=== PATIENT | male | born 1965 | race Caucasian/White ===

== ENCOUNTER 2020-12-02 08:33 | Outpatient (CLI) | payer OTHER | END 2020-12-02 08:42 | disposition home or self-care (01) | LOC: SONOGRAMA 08:33 → MAMO-SONO 09:15 | DX: M25.511 Pain in right shoulder (principal) ==

== ENCOUNTER 2023-06-21 07:52 | Outpatient (CLI) | payer OTHER | END 2023-06-21 08:00 | disposition home or self-care (01) | LOC: SONOGRAMA 07:52 | PROVIDERS: ATTEND Specialist | DX: M65.812 Other synovitis and tenosynovitis, left shoulder (principal) ==